=== PATIENT | male | born 1980 | race Hispanic/Latino ===

== ENCOUNTER 2020-06-02 09:01 | Emergency (ER) | payer SELFPAY ==
[2020-06-02 09:39] LABS: Basophils # (Auto) 0.1 K/mm3 (0.0-0.1); Basophils % (Auto) 1.2 % (0.0-1.8); Eosinophils # (Auto) 0.2 K/mm3 (0.0-0.4); Eosinophils % (Auto) 3.4 % (0.0-4.3); Hematocrit 41.2 % (35.5-45.6); Hemoglobin 14.1 gm/dl (11.8-15.2); Lymphocytes # (Auto) 1.6 K/mm3 (1.2-5.4); Lymphocytes % (Auto) 29.4 % (13.4-35.0); Mean Corpuscular HGB Conc 34 % (32-34); Mean Corpuscular Volume 88 fl (84-94); Monocytes # (Auto) 0.5 K/mm3 (0.0-0.8); Monocytes % (Auto) 9.9 % (0.0-7.3); Platelet Count 172 K/mm3 (140-440); Red Blood Count 4.68 M/mm3 (3.65-5.03); Red Cell Distribution Width 13.7 % (13.2-15.2)
[2020-06-02 10:00] LABS: BUN/Creatinine Ratio 12; Blood Urea Nitrogen 12 mg/dL (9-20); Hemolysis Index 23
[2020-06-02 10:09] VITALS: BP 110/68
--- NOTE | 2020-06-02 10:25 | Emergency Department Report ---
ED GI Bleed HPI - General Chief complaint: GI Bleed Stated complaint: RECTAL BLEEDING Time Seen by Provider: 06/02/20 09:28 Source: patient Mode of arrival: Ambulatory Limitations: No Limitations - History of Present Illness Initial comments: Patient is a 40-year-old male with history of peptic ulcer disease who presents emergency department for evaluation of 6 months of painless bright red blood per rectum in the mornings. Patient states he has not followed up as he does not have health insurance. Patient notes that symptoms seem to be worse when he takes nonsteroidal anti-inflammatory drugs for 2-day, however, does not complain of tooth ache at present time. Patient states he is compliant with daily famotidine. Patient denies abdominal pain, denies nausea vomiting diarrhea, denies anticoagulation. Patient denies vomiting blood patient. Patient denies weakness or lightheadedness. - Related Data Previous Rx's Medication Instructions Recorded Last Taken Type Naproxen [Naprosyn] 500 mg PO BID PRN #20 tablet 12/10/14 Unknown Rx Ondansetron [Zofran Odt] 4 mg PO Q6H PRN #20 tab.rapdis 12/10/14 Unknown Rx Tamsulosin [Flomax] 0.4 mg PO QHS #30 cap 12/10/14 Unknown Rx oxyCODONE /ACETAMINOPHEN [Percocet 1 tab PO Q6HR PRN #15 tablet 12/10/14 Unknown Rx 5/325] Allergies Allergy/AdvReac Type Severity Reaction Status Date / Time No Known Allergies Allergy Verified 12/10/14 18:58 ED Review of Systems ROS: Stated complaint: RECTAL BLEEDING Other details as noted in HPI Comment: All other systems reviewed and negative ED Past Medical Hx - Past Medical History Previous Medical History?: No Additional medical history: Peptic ulcer disease - Surgical History Past Surgical History?: No - Social History Smoking Status: Current Every Day Smoker Substance Use Type: None - Medications Home Medications: Home Medications Medication Instructions Recorded Confirmed Last Taken Type Naproxen [Naprosyn] 500 mg PO BID PRN #20 tablet 12/10/14 Unknown Rx Ondansetron [Zofran Odt] 4 mg PO Q6H PRN #20 tab.rapdis 12/10/14 Unknown Rx Tamsulosin [Flomax] 0.4 mg PO QHS #30 cap 12/10/14 Unknown Rx oxyCODONE /ACETAMINOPHEN [Percocet 1 tab PO Q6HR PRN #15 tablet 12/10/14 Unknown Rx 5/325] ED Physical Exam - General Limitations: No Limitations General appearance: alert, in no apparent distress - Head Head exam: Present: atraumatic, normocephalic - Eye Eye exam: Present: normal appearance - ENT ENT exam: Present: mucous membranes moist - Neck Neck exam: Present: normal inspection - Respiratory Respiratory exam: Present: normal lung sounds bilaterally. Absent: respiratory distress - Cardiovascular Cardiovascular Exam: Present: regular rate, normal rhythm. Absent: systolic murmur, diastolic murmur, rubs, gallop - GI/Abdominal GI/Abdominal exam: Present: soft, normal bowel sounds - Rectal Rectal exam: Present: deferred - Extremities Exam Extremities exam: Present: normal inspection - Back Exam Back exam: Present: normal inspection - Neurological Exam Neurological exam: Present: alert, oriented X3 - Psychiatric Psychiatric exam: Present: normal affect, normal mood - Skin Skin exam: Present: warm, dry, intact, normal color. Absent: rash ED Course Vital Signs 06/02/20 06/02/20 06/02/20 09:35 09:45 10:00 Pulse Rate 70 67 64 Respiratory 22 21 21 Rate Blood Pressure 112/62 110/68 - Reevaluation(s) Reevaluation #1: 06/02/20 10:22 Patient advised to discontinue Nostril anti-inflammatory drugs for tooth ache or any source of pain and instead take Tylenol. Discussed at length the importance of follow-up for eventual colonoscopy to exclude mass versus polyp versus AV malformation versus peptic ulcer disease versus other undiagnosed gastroenterologic pathology causing bleeding. Given reassuring hemoglobin, absence of anticoagulation, chronicity of complaint, patient does not require emergent gastroenterologic evaluation. Patient given information for [facility] [place] [facility], and advised to follow-up with Jose Carlos for possible gastroenterology clinic information if unable to follow-up with either of the first 2 options. In the absence of any available follow-up or for any worsening symptoms, Patient is advised to follow-up with our emergency department immediately. ED Medical Decision Making - Lab Data Result diagrams: 06/02/20 09:20 06/02/20 09:20 Lab Results 06/02/20 06/02/20 Range/Units : 09:20 WBC 5.3 (4.5-11.0) K/mm3 RBC 4.68 (3.65-5.03) M/mm3 Hgb 14.1 (11.8-15.2) gm/dl Hct 41.2 (35.5-45.6) % MCV 88 (84-94) fl MCH 30 (28-32) pg MCHC 34 (32-34) % RDW 13.7 (13.2-15.2) % Plt Count 172 (140-440) K/mm3 Lymph % (Auto) 29.4 (13.4-35.0) % [place] % (Auto) 9.9 H (0.0-7.3) % Eos % (Auto) 3.4 (0.0-4.3) % Baso % (Auto) 1.2 (0.0-1.8) % Lymph # (Auto) 1.6 (1.2-5.4) K/mm3 [place] # (Auto) 0.5 (0.0-0.8) K/mm3 Eos # (Auto) 0.2 (0.0-0.4) K/mm3 Baso # (Auto) 0.1 (0.0-0.1) K/mm3 Seg Neutrophils % 56.1 (40.0-70.0) % Seg Neutrophils # 3.0 (1.8-7.7) K/mm3 Sodium 138 (137-145) mmol/L Potassium 4.4 (3.6-5.0) mmol/L Chloride 106.3 (98-107) mmol/L Carbon Dioxide 25 (22-30) mmol/L Anion Gap 11 mmol/L BUN 12 (9-20) mg/dL Creatinine 1.0 (0.8-1.3) mg/dL Estimated GFR > 60 ml/min BUN/Creatinine Ratio 12 % Glucose 110 H (75-100) mg/dL Calcium 9.0 (8.4-10.2) mg/dL Temp Pulse Resp BP Pulse Ox 64 21 110/68 06/02/20 10:00 06/02/20 10:00 06/02/20 10:00 Vital Signs 06/02/20 06/02/20 06/02/20 09:35 09:45 10:00 Pulse Rate 70 67 64 Respiratory 22 21 21 Rate Blood Pressure 112/62 110/68 Critical care attestation.: If time is entered above; I have spent that time in minutes in the direct care o f this critically ill patient, excluding procedure time. ED Disposition Clinical Impression: Rectal bleeding Disposition: DC- TO HOME OR SELFCARE Is pt being admited?: No Does the pt Need Aspirin: No Condition: Stable Instructions: Rectal Bleeding Referrals: PRIMARY CARE, [Primary Care Provider] - 3-5 Days [facility] [Provider Group] - 3-5 Days [facility] [Provider Group] - 3-5 Days
[2020-06-02 11:15] LABS: INR 1.07 (0.87-1.13)
[2020-06-02 11:22] LABS: Alanine Aminotransferase 16 units/L (7-56)
[2020-06-02 11:23] LABS: Bilirubin,Direct < 0.2 mg/dL (0-0.2)
== END 2020-06-02 10:53 | disposition home or self-care (01) ==
LOC: ED 09:01
DX: K62.5 Hemorrhage of anus and rectum (principal)
CPT/HCPCS: 36415; 80048; 80076; 83690; 85025; 85610; 99283

== ENCOUNTER 2021-02-24 18:28 | Emergency (ER) | payer SELFPAY ==
[2021-02-24] MEDS ORDERED: SODIUM CHLORIDE 0.9% 1000 ML 1,000 ML IV ONE (23:06)
--- NOTE | 2021-02-24 23:07 | Emergency Department Report ---
ED GI Bleed HPI - General Chief complaint: GI Bleed Stated complaint: BLEEDING ULCER Time Seen by Provider: 02/24/21 23:02 Source: patient, EMS Mode of arrival: Stretcher Limitations: No Limitations - History of Present Illness Initial comments: Patient is a 40-year-old male who presents emergency room with complaints of GI bleed. Patient states he has had nausea and vomiting for 3 days. Patient states he also developed coffee-ground emesis 3 days ago. Patient states she has not been able to hold any food down. Patient states approximately 2 days ago he developed bright red blood per rectum. Patient states he is having multiple bowel movements of pure blood. Patient denies pain. Patient states his stool is diarrhea and blood. Patient denies fever or chills. Patient denies abdominal pain. Patient denies dysuria. Patient denies recent travel. Patient denies recent international travel. Patient denies exposure to the novel coronavirus. Patient denies sick contacts. Patient denies fever and chills. Patient denies cough. Patient denies coming in contact with anybody with symptoms of the novel coronavirus. Patient is with EMS. Report received from EMS. EMS states that while the patient has been waiting in the room they have taken to the patient to the restroom 3 times and has had large gross hematochezia. EMS states that the patient's initial blood pressure was 90/60. Patient also found to have tachycardia. EMS states that while the patient is lying flat the patient's blood pressure and heart rate improved. EMS states once the patient gets up to the restroom his heart rate increases and if blood pressure drops. Patient is currently receiving IV saline. complaint: coffee ground emesis, gross hematochezia -: Sudden Consistency: constant Improves with: rest Worsens with: eating, bowel movement, movement Context: history of GI bleed Associated Symptoms: nausea, vomiting. denies: abdominal pain, epistaxis, fever/chills, headaches, loss of appetite, malaise, easy bruising, rash, shortness of breath, syncope, weakness Treatments Prior to Arrival: none - Related Data Previous Rx's Medication Instructions Recorded Last Taken Type Naproxen [Naprosyn] 500 mg PO BID PRN #20 tablet 12/10/14 Unknown Rx Ondansetron [Zofran Odt] 4 mg PO Q6H PRN #20 tab.rapdis 12/10/14 Unknown Rx Tamsulosin [Flomax] 0.4 mg PO QHS #30 cap 12/10/14 Unknown Rx oxyCODONE /ACETAMINOPHEN [Percocet 1 tab PO Q6HR PRN #15 tablet 12/10/14 Unknown Rx 5/325] Allergies Allergy/AdvReac Type Severity Reaction Status Date / Time No Known Allergies Allergy Verified 12/10/14 18:58 ED Review of Systems ROS: Stated complaint: BLEEDING ULCER Other details as noted in HPI Constitutional: denies: chills, fever Eyes: denies: eye pain, eye discharge, vision change ENT: denies: ear pain, throat pain Respiratory: denies: cough, shortness of breath, wheezing Cardiovascular: denies: chest pain, palpitations Endocrine: no symptoms reported Gastrointestinal: nausea, vomiting, diarrhea, hematemesis, hematochezia. denies: abdominal pain Genitourinary: denies: urgency, dysuria Musculoskeletal: denies: back pain, joint swelling, arthralgia Skin: denies: rash, lesions Neurological: denies: headache, weakness, paresthesias Psychiatric: denies: anxiety, depression Hematological/Lymphatic: denies: easy bleeding, easy bruising ED Past Medical Hx - Past Medical History Previous Medical History?: Yes Additional medical history: Peptic ulcer disease - Surgical History Past Surgical History?: No - Family History Family history: no significant - Social History Smoking Status: Current Every Day Smoker Substance Use Type: None - Medications Home Medications: Home Medications Medication Instructions Recorded Confirmed Last Taken Type Naproxen [Naprosyn] 500 mg PO BID PRN #20 tablet 12/10/14 Unknown Rx Ondansetron [Zofran Odt] 4 mg PO Q6H PRN #20 tab.rapdis 12/10/14 Unknown Rx Tamsulosin [Flomax] 0.4 mg PO QHS #30 cap 12/10/14 Unknown Rx oxyCODONE /ACETAMINOPHEN [Percocet 1 tab PO Q6HR PRN #15 tablet 12/10/14 Unknown Rx 5/325] ED Physical Exam - General Limitations: No Limitations General appearance: alert, in no apparent distress - Head Head exam: Present: atraumatic, normocephalic - Eye Eye exam: Present: normal appearance - ENT ENT exam: Present: mucous membranes moist - Neck Neck exam: Present: normal inspection - Respiratory Respiratory exam: Present: normal lung sounds bilaterally. Absent: respiratory distress - Cardiovascular Cardiovascular Exam: Present: regular rate, normal rhythm. Absent: systolic murmur, diastolic murmur, rubs, gallop - GI/Abdominal GI/Abdominal exam: Present: soft, normal bowel sounds. Absent: distended, tenderness, guarding - Rectal Rectal exam: Present: deferred - Extremities Exam Extremities exam: Present: normal inspection - Back Exam Back exam: Present: normal inspection - Neurological Exam Neurological exam: Present: alert, oriented X3 - Psychiatric Psychiatric exam: Present: normal affect, normal mood - Skin Skin exam: Present: warm, dry, intact, normal color. Absent: rash ED Course - Reevaluation(s) Reevaluation #1: I discussed plan of care with patient. Patient states he does not want to stay in the hospital longer. Patient states he wants to go. I discussed the risk with patient. Patient states he wants to leave. Patient voiced understanding of risk of leaving the hospital AGAINST MEDICAL ADVICE. Patient signed AMA form. Patient is alert and oriented x4. 02/25/21 00:15 - Consultations Consultation #1: GI paged. 02/25/21 00:10 GI informed the patient left AGAINST MEDICAL ADVICE. 02/25/21 00:17 ED Medical Decision Making - Lab Data Result diagrams: 02/24/21 23:22 02/24/21 23:22 - Medical Decision Making Patient is a 40-year-old male who presents emergency with complaints of coffee- ground emesis, GI bleed, and bright red blood per rectum. Patient has history of GI bleed. Patient states his melena for 3 days. He states symptoms are worsening. Patient is having large volume gross hematochezia. Patient medications witnessed by EMS. While patient is waiting patient had 3 large bloody diarrheas in the ER. Patient had labs done which were essentially unremarkable. Patient GI for consultation based on the patient's clinical presentation. However prior to being able discussed the case with GI, the patient left the hospital AGAINST MEDICAL ADVICE. Patient signed AMA form. Patient given a formal discharge even though he left the hospital AGAINST MEDICAL ADVICE. - Differential Diagnosis GI bleed, bright red blood per rectum, coffee-ground emesis Critical Care Time: Yes Critical care time in (mins) excluding proc time.: 35 Critical care attestation.: If time is entered above; I have spent that time in minutes in the direct care of this critically ill patient, excluding procedure time. Critical Care Time: 35 minutes ED Disposition Clinical Impression: BRBPR (bright red blood per rectum), Coffee ground emesis Nausea & vomiting Qualifiers: Vomiting type: unspecified Vomiting Intractability: non-intractable Qualified Code(s): R11.2 - Nausea with vomiting, unspecified Hypotension Qualifiers: Hypotension type: unspecified hypotension type Qualified Code(s): I95.9 - Hypotension, unspecified Disposition: 07 LEFT AGAINST MEDICAL ADVICE Is pt being admited?: No Does the pt Need Aspirin: No Condition: Critical Instructions: Nausea and Vomiting, Adult, [id number], Hematemesis, Lower Gastrointestinal Bleeding Additional Instructions: Patient to follow-up with primary care in 2 to 3 days. Patient to follow-up with communications editor in 2 to 3 days. Patient to rest. Patient to increase water. Patient to avoid strenuous exercise or heavy lifting until cleared by GI and primary care. Patient to take Tylenol as needed for pain. Patient to return to the ER if condition worsens, changes or new symptoms arise. Forms: AMA Form Time of Disposition: 00:23
[2021-02-24 23:35] LABS: Basophils % (Auto) 0.2 % (0.0-1.8); Eosinophils % (Auto) 0.1 % (0.0-4.3); Hematocrit 36.9 % (35.5-45.6); Hemoglobin 12.8 gm/dl (11.8-15.2); Lymphocytes # (Auto) 1.5 K/mm3 (1.2-5.4); Lymphocytes % (Auto) 11.9 % (13.4-35.0); Mean Corpuscular HGB Conc 35 % (32-34); Mean Corpuscular Volume 88 fl (84-94); Monocytes # (Auto) 0.8 K/mm3 (0.0-0.8); Monocytes % (Auto) 6.4 % (0.0-7.3); Platelet Count 282 K/mm3 (140-440); Red Blood Count 4.21 M/mm3 (3.65-5.03); Red Cell Distribution Width 13.4 % (13.2-15.2)
[2021-02-24 23:44] LABS: INR 1.13 (0.87-1.13)
[2021-02-24 23:45] LABS: Partial Thromboplastin Time 23.8 Sec. (24.2-36.6)
[2021-02-24 23:57] LABS: Alanine Aminotransferase 9 units/L (7-56); BUN/Creatinine Ratio 21; Blood Urea Nitrogen 23 mg/dL (9-20); Hemolysis Index 3
[2021-02-25] MEDS ORDERED: PANTOPRAZOLE 40 MG INJ IV ONE (00:05)
[2021-02-25 00:47] VITALS: BP 110/70
== END 2021-02-25 00:15 | disposition left against medical advice (07) ==
LOC: ED 18:28
DX: K62.5 Hemorrhage of anus and rectum (principal); K92.0 Hematemesis; I95.9 Hypotension, unspecified; F17.200 Nicotine dependence, unspecified, uncomplicated; Z79.899 Other long term (current) drug therapy
CPT/HCPCS: 36415; 80053; 82140; 85025; 85610; 85730

== ENCOUNTER 2021-04-24 09:27 | Emergency (ER) | payer SELFPAY ==
[2021-04-24 10:50] LABS: Basophils # (Auto) 0.1 K/mm3 (0.0-0.1); Eosinophils # (Auto) 0.1 K/mm3 (0.0-0.4); Eosinophils % (Auto) 0.9 % (0.0-4.3); Hematocrit 36.7 % (35.5-45.6); Hemoglobin 12.1 gm/dl (11.8-15.2); Lymphocytes # (Auto) 1.6 K/mm3 (1.2-5.4); Lymphocytes % (Auto) 19.5 % (13.4-35.0); Mean Corpuscular HGB Conc 33 % (32-34); Mean Corpuscular Volume 78 fl (84-94); Monocytes # (Auto) 0.8 K/mm3 (0.0-0.8); Platelet Count 306 K/mm3 (140-440); Red Blood Count 4.68 M/mm3 (3.65-5.03); Red Cell Distribution Width 16.3 % (13.2-15.2)
[2021-04-24] MEDS ORDERED: SODIUM CHLORIDE 0.9% 1000 ML 1,000 ML IV ONE (11:10)
[2021-04-24] MEDS ORDERED: ONDANSETRON 4 MG/2 ML INJ IV ONE (11:10)
--- NOTE | 2021-04-24 11:13 | Emergency Department Report ---
HPI - General Chief Complaint: Abdominal Pain Time Seen by Provider: 04/24/21 10:24 - HPI HPI: 41-year-old male presents to the emergency department with a complaint of a 1.5-week history of intractable nausea with vomiting. This is associated with generalized abdominal pain. He says it is currently about 5 out of 10 in intensity. No known aggravating or alleviating factors. He denies any fever, diarrhea, chest pain, shortness of breath. The patient says that this has been going on since he was recently incarcerated. He has a past medical history of "bleeding ulcers" but denies any rectal bleeding or bloody emesis. He has not taken anything for symptoms prior to presentation. No recent travel. He is not vaccinated against COVID-19, but denies any known exposure to anyone positive for COVID-19. Patient claims to have lost about 40 pounds over the past 2 months without intending to do so. ED Past Medical Hx - Past Medical History Additional medical history: Peptic ulcer disease - Social History Smoking Status: Current Every Day Smoker Substance Use Type: None - Medications Home Medications: Home Medications Medication Instructions Recorded Confirmed Last Taken Type Naproxen [Naprosyn] 500 mg PO BID PRN #20 tablet 12/10/14 Unknown Rx Ondansetron [Zofran Odt] 4 mg PO Q6H PRN #20 tab.rapdis 12/10/14 Unknown Rx Tamsulosin [Flomax] 0.4 mg PO QHS #30 cap 12/10/14 Unknown Rx oxyCODONE /ACETAMINOPHEN [Percocet 1 tab PO Q6HR PRN #15 tablet 12/10/14 Unknown Rx 5/325] ED Review of Systems ROS: Stated complaint: CANT HOLD LIQUIDS DOWN, Other details as noted in HPI Comment: All other systems reviewed and negative Constitutional: denies: chills, fever Eyes: denies: eye pain, vision change ENT: denies: ear pain, throat pain Respiratory: denies: cough, shortness of breath Cardiovascular: denies: chest pain, palpitations Gastrointestinal: abdominal pain, nausea, vomiting Genitourinary: denies: dysuria, discharge Musculoskeletal: denies: back pain, arthralgia Skin: denies: rash, lesions Neurological: denies: headache, weakness Physical Exam - Physical Exam Vital Signs: Vital Signs 04/24/21 09:29 Temperature 97.8 F Pulse Rate 78 Respiratory 18 Rate O2 Sat by Pulse 97 Oximetry Physical Exam: GENERAL: The patient is well-developed well-nourished. HENT: Normocephalic. Atraumatic. Patient has moist mucous membranes. EYES: Extraocular motions are intact. NECK: Supple. Trachea is midline. CHEST/LUNGS: Clear to auscultation. There is no respiratory distress noted. HEART/CARDIOVASCULAR: Regular. There is no tachycardia. There is no murmur. ABDOMEN: Abdomen is soft. Generalized abdominal tenderness to palpation. No guarding. Patient has normal bowel sounds. There is no abdominal distention. SKIN: Skin is warm and dry. NEURO: The patient is awake, alert, and oriented. The patient is cooperative. The patient has no focal neurologic deficits. Normal speech. MUSCULOSKELETAL: There is no tenderness or deformity. There is no limitation range of motion. ED Course Vital Signs 04/24/21 09:29 Temperature 97.8 F Pulse Rate 78 Respiratory 18 Rate O2 Sat by Pulse 97 Oximetry ED Medical Decision Making - Lab Data Result diagrams: 04/24/21 10:35 04/24/21 10:35 Lab Results 04/24/21 04/24/21 Range/Units 10:35 10:35 WBC 8.1 (4.5-11.0) K/mm3 RBC 4.68 (3.65-5.03) M/mm3 Hgb 12.1 (11.8-15.2) gm/dl Hct 36.7 (35.5-45.6) % MCV 78 L (84-94) fl MCH 26 L (28-32) pg MCHC 33 (32-34) % RDW 16.3 H (13.2-15.2) % Plt Count 306 (140-440) K/mm3 Lymph % (Auto) 19.5 (13.4-35.0) % [place] % (Auto) 10.0 H (0.0-7.3) % Eos % (Auto) 0.9 (0.0-4.3) % Baso % (Auto) 1.0 (0.0-1.8) % Lymph # (Auto) 1.6 (1.2-5.4) K/mm3 [place] # (Auto) 0.8 (0.0-0.8) K/mm3 Eos # (Auto) 0.1 (0.0-0.4) K/mm3 Baso # (Auto) 0.1 (0.0-0.1) K/mm3 Seg Neutrophils % 68.6 (40.0-70.0) % Seg Neutrophils # 5.6 (1.8-7.7) K/mm3 Sodium 132 L (137-145) mmol/L Potassium 3.9 (3.6-5.0) mmol/L Chloride 98.1 (98-107) mmol/L Carbon Dioxide 24 (22-30) mmol/L Anion Gap 14 mmol/L BUN 7 L (9-20) mg/dL Creatinine 0.9 (0.8-1.3) mg/dL Estimated GFR > 60 ml/min BUN/Creatinine Ratio 8 % Glucose 123 H (75-100) mg/dL Calcium 8.6 (8.4-10.2) mg/dL Total Bilirubin 0.20 (0.1-1.2) mg/dL Direct Bilirubin < 0.2 (0-0.2) mg/dL Indirect Bilirubin 0.0 mg/dL AST 9 (5-40) units/L ALT 8 (7-56) units/L Alkaline Phosphatase 57 (35-129) units/L Total Protein 6.6 (6.3-8.2) g/dL Albumin 4.2 (3.9-5) g/dL Albumin/Globulin Ratio 1.8 % Lipase 278 H (13-60) units/L - Radiology Data Radiology results: report reviewed CT ABDOMEN AND PELVIS WITH CONTRAST HISTORY: Abd pain, elevated lipase OMNI 300 100 ML COMPARISON: None TECHNIQUE: Routine abdominal and pelvic CT exam performed following intravenous contrast administration.. All CT scans at this location are performed using CT dose reduction for ALARA by means of automated exposure control. FINDINGS: CT ABDOMEN: Lung Bases: No significant abnormality. Liver: Small 1.5 cm hypoattenuating lesion in the right hepatic lobe. Internal density measurement of 50 Hounsfield units. Biliary: No significant abnormality. Spleen: No significant abnormality. Unenlarged. Pancreas: No significant abnormality. Adrenals: No significant abnormality. Kidneys: Small simple cysts in the lateral right kidney. Lymphatics: No lymphadenopathy. Vasculature: No significant abnormality. Bowel/Peritoneum: No significant abnormality. No free air. No free fluid. CT PELVIC: : No significant abnormality. Lymphatics: No lymphadenopathy. Osseous Structures: No aggressive appearing osseous lesions. Additional Findings: None IMPRESSION: 1. No acute findings. Specifically, the pancreas appears normal. 2. Indeterminate hypoattenuating lesion in the right hepatic lobe. If there is no prior imaging to evaluate for stability, evaluation with liver ultrasound can be performed to evaluate for any solid component or internal complexity. (This does not appear to represent a simple cyst on CT). - Medical Decision Making This patient presents to the emergency department with a complaint of a 1.5-week history of nausea with vomiting and generalized abdominal pain. On examination there is some reproducible abdominal tenderness to palpation but no guarding and the abdomen is not distended. Labs are mostly unremarkable including CBC and metabolic panel but he does have an elevated lipase level of about 300. Patient was given IV fluid resuscitation and antiemetic. He went for CT scan of the abdomen and pelvis which did not show any evidence of pancreatitis but did show a hypoattenuation of the liver that may require future imaging. However, I went to reevaluate the patient after CT and medications and the patient had eloped from the emergency department. Critical Care Time: No Critical care attestation.: If time is entered above; I have spent that time in minutes in the direct care of this critically ill patient, excluding procedure time. ED Disposition Clinical Impression: Abdominal pain, Nausea & vomiting, Elevated lipase Disposition: 07 LEFT AWOL/ELOPED Is pt being admited?: No Time of Disposition: 14:43
[2021-04-24 11:22] LABS: Alanine Aminotransferase 8 units/L (7-56); Albumin 4.2 g/dL (3.9-5); BUN/Creatinine Ratio 8; Blood Urea Nitrogen 7 mg/dL (9-20); Calcium 8.6 mg/dL (8.4-10.2); Hemolysis Index 3
[2021-04-24 11:26] LABS: Bilirubin,Direct < 0.2 mg/dL (0-0.2)
--- NOTE | 2021-04-24 13:10 | Cat Scan Report ---
CT ABDOMEN AND PELVIS WITH CONTRAST HISTORY: Abd pain, elevated lipase OMNI 300 100 ML COMPARISON: None TECHNIQUE: Routine abdominal and pelvic CT exam performed following intravenous contrast administrat ion.. All CT scans at this location are performed using CT dose reduction for ALARA by means of autom ated exposure control. FINDINGS: CT ABDOMEN: Lung Bases: No significant abnormality. Liver: Small 1.5 cm hypoattenuating lesion in the right hepatic lobe. Internal density measurement of 50 Hounsfield units. Biliary: No significant abnormality. Spleen: No significant abnormality. Unenlarged. Pancreas: No significant abnormality. Adrenals: No significant abnormality. Kidneys: Small simple cysts in the lateral right kidney. Lymphatics: No lymphadenopathy. Vasculature: No significant abnormality. Bowel/Peritoneum: No significant abnormality. No free air. No free fluid. CT PELVIC: : No significant abnormality. Lymphatics: No lymphadenopathy. Osseous Structures: No aggressive appearing osseous lesions. Additional Findings: None IMPRESSION: 1. No acute findings. Specifically, the pancreas appears normal. 2. Indeterminate hypoattenuating lesion in the right hepatic lobe. If there is no prior imaging to ev aluate for stability, evaluation with liver ultrasound can be performed to evaluate for any solid com ponent or internal complexity. (This does not appear to represent a simple cyst on CT). Signer Name: Oscar Avelar MD Signed: 04/24/2021 1:06 PM Workstation Name: [id number]
== END 2021-04-24 13:31 | disposition left against medical advice (07) ==
LOC: ED 09:27
DX: R11.2 Nausea with vomiting, unspecified (principal); R10.84 Generalized abdominal pain; R74.8 Abnormal levels of other serum enzymes; F17.200 Nicotine dependence, unspecified, uncomplicated
CPT/HCPCS: 36415; 74177; 80048; 80076; 83690; 85025; 96361; 96374; 99284; J2405; J7030; Q9967

== ENCOUNTER 2021-04-26 11:02 | Emergency (ER) | payer SELFPAY ==
[2021-04-26 11:11] VITALS: BP 118/74
--- NOTE | 2021-04-26 13:45 | Event Note ---
Date: 04/26/21 Went to room to examine patient. Patient not in room. Patient not in the department. He has not told anyone where he is. Called up listed phone number. No answer. Left voicemail for call back with instructions to return to the emergency room
== END 2021-04-26 13:30 | disposition left against medical advice (07) ==
LOC: ED 11:02
DX: R11.10 Vomiting, unspecified (principal); Z53.21 Procedure and treatment not carried out due to patient leaving prior to being seen by health care provider

== ENCOUNTER 2021-08-01 10:33 | Emergency (ER) | payer SELFPAY ==
[2021-08-01 10:37] VITALS: BP 129/86
== END 2021-08-01 19:05 | disposition left against medical advice (07) ==
LOC: ED 10:33
DX: R69 Illness, unspecified (principal); Z53.21 Procedure and treatment not carried out due to patient leaving prior to being seen by health care provider

== ENCOUNTER 2021-10-08 00:51 | Emergency (ER) | payer SELFPAY ==
[2021-10-08 01:41] VITALS: BP 142/60
== END 2021-10-08 06:38 | disposition left against medical advice (07) ==
LOC: ED 00:51
DX: R11.10 Vomiting, unspecified (principal); Z53.21 Procedure and treatment not carried out due to patient leaving prior to being seen by health care provider

== ENCOUNTER 2022-03-22 07:59 | Emergency (ER) | payer SELFPAY ==
[2022-03-22 08:05] VITALS: BP 102/68
== END 2022-03-22 09:50 | disposition left against medical advice (07) ==
LOC: ED 07:59
DX: M25.569 Pain in unspecified knee (principal); Z13.30 Encounter for screening examination for mental health and behavioral disorders, unspecified; Z53.21 Procedure and treatment not carried out due to patient leaving prior to being seen by health care provider